=== PATIENT | male | born 1975 | race African-American/Black ===

== ENCOUNTER 2019-12-07 22:45 | Inpatient (IN) | payer MEDICAID ==
[~2019-12-07] VITALS: Ht 175.3 cm; Wt 84.8 kg
[2019-12-07] MEDS ORDERED: KETOROLAC 30MG/ML VIAL IV STA (23:21)
[2019-12-07] MEDS ORDERED: ONDANSETRON HCL 4MG/2ML INJ IV STA (23:21)
[2019-12-07] MEDS ORDERED: SODIUM CHLORIDE 0.9% 1,000 ML IV ONE (23:21)
[2019-12-07 23:52] LABS: EOSINOPHILS % 0.2 % (0.0-5.0); HEMATOCRIT. 41.9 % (42.0-52.0); HEMOGLOBIN. 14.1 g/dL (14.0-18.0); LYMPHOCYTES % 17.8 % (20.0-50.0); MEAN CORPUSCULAR HEMOGLOBIN 28.6 pg (28.0-32.0); MEAN CORPUSCULAR VOLUME 85.1 fL (80.0-94.0); MEAN PLATELET VOLUME 9.7 fl (7.4-10.4); MONOCYTES % 10.8 % (2.0-8.0); NEUTROPHILS % 70.2 % (40.0-76.0); PLATELET 171 x1000/uL (130-400); RED BLOOD CELL COUNT 4.93 mill/uL (4.7-6.1); RED CELL DISTRIBUTION WIDTH 13.9 % (11.6-14.6)
[2019-12-07 23:57] LABS: CHLORIDE 106 mEq/L (98-107)
[2019-12-08] MEDS ORDERED: POTASSIUM CHLORIDE 20MEQ TABLET SR PO ONE (00:15)
[2019-12-08 01:01] LABS: CLARITY URINE CLEAR (CLEAR); COLOR URINE YELLOW (YELLOW); KETONES URINE 1+ (NEGATIVE); LEUKOCYTE ESTERASE URINE TRACE (NEGATIVE); NITRITE URINE NEGATIVE (NEGATIVE); OCCULT BLOOD URINE 2+ (NEGATIVE); PROTEIN URINE NEGATIVE (NEGATIVE); SPECIFIC GRAVITY URINE 1.011 (1.005-1.030); UROBILINOGEN URINE 0.2 E.U./dL (0.2-1.0)
[2019-12-08] MEDS ORDERED: IOHEXOL-300 100 ML BOTTLE ONE (01:03)
[2019-12-08 01:17] LABS: *AMPHETAMINES SCREEN URINE NEGATIVE (NEGATIVE); *BARBITURATES SCREEN URINE NEGATIVE (NEGATIVE); *BENZODIAZEPINES SCREEN URINE NEGATIVE (NEGATIVE); *COCAINE SCREEN URINE NEGATIVE (NEGATIVE)
[2019-12-08 01:18] LABS: CANNABINOID URINE SCREEN PRESUMTIVE POSITIVE (NEGATIVE); METHADONE URINE SCREEN NEGATIVE (NEGATIVE); OPIATES URINE SCREEN NEGATIVE (NEGATIVE); PHENCYCLIDINE URINE SCREEN NEGATIVE (NEGATIVE)
[2019-12-08] MEDS ORDERED: ONDANSETRON HCL 4MG/2ML INJ IV ONE (02:30)
[2019-12-08] MEDS ORDERED: MORPHINE SULFATE 2 MG/ML CPJ (NOT FOR IM USE) IV ONE (02:30)
[2019-12-08] MEDS ORDERED: IPRATROPIUM/ALBUTEROL 0.5-3(2.5)MG/3ML NEB NEB PRN (08:30)
[2019-12-08] MEDS ORDERED: NA PHOS,M-B/NA PHOS,DI-BA ENEMA 118ML PR PRN (08:30)
[2019-12-08] MEDS ORDERED: ACETAMINOPHEN 325MG TABLET PO PRN (08:30)
[2019-12-08] MEDS ORDERED: DIPHENHYDRAMINE 50MG/ML VIAL IV PRN (08:30)
[2019-12-08] MEDS ORDERED: ONDANSETRON HCL 4MG/2ML INJ IV PRN (08:30)
[2019-12-08] MEDS ORDERED: HYDROCODONE/ACETAMINOPHEN 10/325MG TABLET PO PRN (08:30)
[2019-12-08] MEDS ORDERED: MAGNESIUM/ALUMINUM HYDROXIDE/SIMETHICONE 30ML UDC PO PRN (08:30)
[2019-12-08] MEDS ORDERED: DOCUSATE SODIUM 100MG CAPSULE PO PRN (08:30)
[2019-12-08] MEDS ORDERED: GUAIFENESIN 200MG/10ML SUGAR FREE UDC PO PRN (08:30)
[2019-12-08] MEDS ORDERED: LORAZEPAM 2MG/ML CPJ IV PRN (08:30)
[2019-12-08] MEDS ORDERED: CLONIDINE 0.1MG TABLET PO PRN (08:30)
[2019-12-08] MEDS ORDERED: MORPHINE SULFATE 2 MG/ML CPJ (NOT FOR IM USE) IV PRN (08:30)
[2019-12-08] MEDS: SODIUM CHLORIDE 0.45% 1,000 ML IV SCH ×2 (08:39→23:34)
[2019-12-08] MEDS: ENOXAPARIN 40MG/0.4ML SYR SUBCUT SCH (08:50)
[2019-12-08] MEDS ORDERED: LEVOFLOXACIN 500MG PREMIX 100 ML IV SCH (09:00)
[2019-12-08 09:10] VITALS: BP 127/81
[2019-12-08 12:00] VITALS: BP 134/89
[2019-12-08 12:56] LABS: CHLORIDE 108 mEq/L (98-107)
[2019-12-08 16:00] VITALS: BP 140/90
[2019-12-08 20:00] VITALS: BP 138/92
[2019-12-09 00:20] VITALS: BP 140/80
[2019-12-09 04:00] VITALS: BP 128/88
[2019-12-09 06:20] LABS: EOSINOPHILS % 1.6 % (0.0-5.0); HEMATOCRIT. 39.5 % (42.0-52.0); HEMOGLOBIN. 13.5 g/dL (14.0-18.0); LYMPHOCYTES % 47.5 % (20.0-50.0); MEAN CORPUSCULAR HEMOGLOBIN 28.9 pg (28.0-32.0); MEAN CORPUSCULAR VOLUME 84.6 fL (80.0-94.0); MEAN PLATELET VOLUME 9.6 fl (7.4-10.4); MONOCYTES % 13.3 % (2.0-8.0); NEUTROPHILS % 36.6 % (40.0-76.0); PLATELET 179 x1000/uL (130-400); RED BLOOD CELL COUNT 4.67 mill/uL (4.7-6.1); RED CELL DISTRIBUTION WIDTH 14.2 % (11.6-14.6)
[2019-12-09] MEDS: SODIUM CHLORIDE 0.45% 1,000 ML IV SCH (06:23)
[2019-12-09 06:30] LABS: CHLORIDE 107 mEq/L (98-107)
[2019-12-09 06:47] LABS: LDL CHOLESTEROL 90 mg/dL (5-100)
[2019-12-09 06:49] LABS: HDL CHOLESTEROL 39 mg/dL (40-59); T4 FREE 1.21 ng/dL (0.76-1.46)
[2019-12-09 08:00] VITALS: BP 105/69
[2019-12-09] MEDS ORDERED: POTASSIUM CHLORIDE 20MEQ TABLET SR PO SCH (09:00)
[2019-12-09] MEDS ORDERED: LEVOFLOXACIN 500MG PREMIX 100 ML IV SCH ×2 (09:00)
[2019-12-09] MEDS: ENOXAPARIN 40MG/0.4ML SYR SUBCUT SCH (09:28)
[2019-12-09] MEDS ORDERED: KETOROLAC 30MG/ML VIAL IV SCH (11:00)
[2019-12-09 12:00] VITALS: BP 147/90
[2019-12-09 16:00] VITALS: BP 137/86
[2019-12-09 16:54] VITALS: BP 137/86
== END 2019-12-09 18:00 | disposition home or self-care (01) | DRG 463 ==
LOC: ER 22:45 → 6EST 12-08 04:08 → EDBEDREQ 12-08 04:20 → ENRESERV 12-08 08:45
PROVIDERS: ADMIT Internal Medicine; ATTEND Internal Medicine
DX: N13.6 Pyonephrosis (principal); N17.0 Acute kidney failure with tubular necrosis; E86.0 Dehydration; I10 Essential (primary) hypertension; Z87.81 Personal history of (healed) traumatic fracture
CPT/HCPCS: 36415; 74177; 80048; 80053; 80061; 80305; 81003; 84439; 84443; 85025; 99285; J1650; J1885; J1956; J2270; J2405; J7030; Q9967